=== PATIENT | female | born 2000 | race American Indian/Alaskan Native ===

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

== ENCOUNTER 2021-07-11 15:27 | Outpatient (CLI) | payer MEDICAID, OTHER ==
[2021-07-11 16:23] VITALS: BP 105/59
[2021-07-11] MEDS ORDERED: LACTATED RINGERS 1,000 ML IV ONE (17:00)
[2021-07-11 17:05] LABS: Bilirubin,Urine NEG (Negative); Blood,Urine NEG (Negative); Color,Urine Yellow (Yellow); Mucus,Urine 2+ /HPF; Protein,Urine <15 mg/dL mg/dL (Negative); Urobilinogen,Urine < 2.0 mg/dL (<2.0)
--- NOTE | 2021-07-11 17:29 | Ultrasound Report ---
ULTRASOUND OBSTETRIC LIMITED INDICATION / CLINICAL INFORMATION: labor . Clinical Gestational Age (GA) in weeks, days: 26 weeks 0 days TECHNIQUE: Transabdominal. COMPARISON: None available. FINDINGS: Single live intrauterine in cephalic presentation with measurements corresponding to a gestational age of 26 weeks and 1 day, as below. MEASUREMENTS: - Biparietal Diameter = 6.6 cm = 26 weeks 3 days - Head Circumference = 24 cm = 26 weeks 0 days - Abdominal Circumference = 21.4 cm = 26 weeks 0 days - Femur Length = 4.9 cm = 26 weeks 2 days - Estimated Weight (in grams, if calculated): 891 HEART RATE (beats per minute): 149 AMNIOTIC FLUID INDEX (cm) = 16.4 (normal = 7-24 cm) ADDITIONAL FINDINGS: Posterior placenta is free of the os. No evidence of placental abruption. IMPRESSION: 1. Single live intrauterine with ultrasound age of 26 weeks and 1 day, as described above. 2. No significant abnormality. Signer Name: Henrry Ambriz MD Signed: 07/11/2021 5:25 PM Workstation Name: [id number]
== END 2021-07-11 17:30 | disposition left against medical advice (07) ==
LOC: TRG 15:27 → APU 15:29 → TRG 17:30
PROVIDERS: ATTEND Obstetrics & Gynecology
DX: Z34.92 Encounter for supervision of normal pregnancy, unspecified, second trimester (principal); Z3A.26 26 weeks gestation of pregnancy
CPT/HCPCS: 76816; 81001

== ENCOUNTER → 2021-07-11 | Emergency (ER) | payer MEDICAID, OTHER | LOC: ED 14:29 | DX: R10.9 Unspecified abdominal pain (principal); Z53.21 Procedure and treatment not carried out due to patient leaving prior to being seen by health care provider ==

== ENCOUNTER 2021-09-28 16:47 | Outpatient (CLI) | payer OTHER ==
[2021-09-28 20:15] LABS: Bilirubin,Urine NEG (Negative); Blood,Urine LG (Negative); Color,Urine Yellow (Yellow); Mucus,Urine FEW /HPF; Protein,Urine <15 mg/dL mg/dL (Negative); Urobilinogen,Urine < 2.0 mg/dL (<2.0)
[2021-09-28] MEDS ORDERED: LIDOCAINE-MPF (1%) 10 MG/1 ML VIAL 5 ML INFILTRATI ONE (21:13)
[2021-09-28 22:13] VITALS: BP 121/58
== END 2021-09-28 22:34 | disposition home or self-care (01) ==
LOC: APU 16:47 → TRG 16:47
PROVIDERS: ATTEND Obstetrics & Gynecology
DX: Z34.93 Encounter for supervision of normal pregnancy, unspecified, third trimester (principal); Z3A.37 37 weeks gestation of pregnancy
CPT/HCPCS: 81001; 87086; J0696; J3490

== ENCOUNTER 2021-10-13 12:51 | Outpatient (CLI) | payer OTHER ==
[2021-10-13 13:32] VITALS: BP 114/57
== END 2021-10-13 14:59 | disposition home or self-care (01) ==
LOC: APU 12:51 → TRG 12:51
PROVIDERS: ATTEND Obstetrics & Gynecology
DX: Z34.93 Encounter for supervision of normal pregnancy, unspecified, third trimester (principal); Z3A.39 39 weeks gestation of pregnancy
CPT/HCPCS: 59025

== ENCOUNTER 2021-10-14 05:12 | Inpatient (IN) | payer OTHER ==
[2021-10-14] MEDS ORDERED: LACTATED RINGERS 1,000 ML ONE (06:54)
[2021-10-14] MEDS ORDERED: CARBOPROST TROMETHAMINE 250 MCG/1 ML INJ IM PRN (08:00)
[2021-10-14] MEDS ORDERED: OXYTOCIN DRIP 30 UNITS/500 ML BAG IV SCH ×2 (08:00→09:00)
[2021-10-14] MEDS ORDERED: ePHEDrine SULFATE 50 MG/1 ML INJ IV PRN (08:00)
[2021-10-14] MEDS ORDERED: METHYLERGONOVINE MALEATE 0.2 MG/ML VIAL IM PRN (08:00)
[2021-10-14] MEDS ORDERED: fentaNYL 100 MCG/2 ML INJ IV PRN (08:00)
[2021-10-14] MEDS ORDERED: MINERAL OIL 30 ML ORAL LIQD PO PRN (08:00)
[2021-10-14] MEDS ORDERED: ACETAMINOPHEN 325 MG TAB PO PRN ×2 (08:00→09:00)
[2021-10-14] MEDS ORDERED: LOPERAMIDE 2 MG CAP PO PRN (08:00)
[2021-10-14] MEDS ORDERED: AMPICILLIN/NS 2 GM/100 ML 2 GM/100 ML BAG IV SCH (08:00)
[2021-10-14] MEDS ORDERED: LIDOCAINE (2%) 20 MG/1 ML VIAL 20 ML MDV INFILTRATI SCH (08:00)
[2021-10-14] MEDS ORDERED: LACTATED RINGERS 1,000 ML IV SCH (08:00)
[2021-10-14 08:09] LABS: Basophils % (Auto) 0.4 % (0.0-1.8); Eosinophils # (Auto) 0.1 K/mm3 (0.0-0.4); Eosinophils % (Auto) 1.6 % (0.0-4.3); Hematocrit 30.6 % (30.3-42.9); Hemoglobin 9.6 gm/dl (10.1-14.3); Mean Corpuscular HGB Conc 31 % (30-34); Mean Corpuscular Volume 73 fl (79-97); Monocytes # (Auto) 0.8 K/mm3 (0.0-0.8); Monocytes % (Auto) 9.9 % (0.0-7.3); Platelet Count 184 K/mm3 (140-440); Red Cell Distribution Width 16.4 % (13.2-15.2)
--- NOTE | 2021-10-14 08:16 | Procedure Note ---
<RACHEL KAISER - Last Filed: 10/14/21 08:10> OB Delivery Note - Delivery Date of Delivery: 10/14/21 [place] Worker: RACHEL KAISER - Vaginal Delivery presentation: vertex Delivery position: OA Intrapartum events: precipitous labor- <3hr Delivery induction: none Delivery monitor: external FHT, external uterine Route of delivery: Delivery placenta: spontaneous Delivery cord: 3 umbilical vessels Episiotomy: none Anesthesia: none Delivery comments: called to bedside by L&D staff to assist with delivery. Head upon entry into room. Patient pushed with screaming and legs closed, Delivered FABRIZIO without shoulder dystocia or complication. light mec fluid noted, baby vigorous and crying. placed skin to skin on mother's abdomen. 3 vessel cord clamped and cut after cessation of pulsation.cord blood collected. Placenta delivered intact and complete. Patient appears to have 1st degree perineum laceration but she did not tolerate inspection well closing legs and pulling provider's hands away. Pt is hemostatic, will allow patient's primary provider to assess and repair. Apgars 8/9. Pt left in stable condition with L& D team. - A at 1 minute: 8 at 5 minutes: 9 Infant Gender: Male <ALDO AU - Last Filed: 10/14/21 08:26> OB Delivery Note - A Infant Gender: Male (Weight 8 pounds 5 ounces)
--- NOTE | 2021-10-14 08:25 | History and Physical Report ---
History of Present Illness Date of examination: 10/14/21 Date of admission: 10/14/21 05:13 Chief complaint: Contractions History of present illness: 20-year-old -0-0-1 at 39+5 weeks who presents in active labor with a complaint of leakage of fluid. The patient advanced cervical dilatation at presentation of 5 cm. The patient's course is complicated by late entry to care at 32 weeks estimated gestational age. The patient has a history of genital herpes but denies any recent prodrome. The patient is GBS negative Past History Past Medical History: no pertinent history Past Surgical History: no surgical history PRODUCTION COORDINATOR History: herpes Social history: single - Obstetrical History Expected Date of Delivery: 10/16/21 Actual Gestation: 39 Week(s) 6 Day(s) : 2 Para: 1 Hx # Term Pregnancies: 1 Number of Pregnancies: 0 Spontaneous Abortions: 0 Induced : 0 Number of Living Children: 1 Medications and Allergies Allergies Allergy/AdvReac Type Severity Reaction Status Date / Time pollen extracts Allergy Mild Itching Verified 09/28/21 17:10 Home Medications Medication Instructions Recorded Confirmed Last Taken Type Acetaminophen [Tylenol] 500 mg PO Q6HR PRN #30 tablet 04/19/20 10/14/21 Unknown Rx cephALEXin [Keflex] 500 mg PO Q8HR #30 cap 04/19/20 10/14/21 Unknown Rx Nitrofurantoin Josephine/M-Cryst 100 mg PO Q12HR #14 capsule 05/06/20 10/14/21 Unknown Rx [Macrobid CAP] Ondansetron [Zofran Odt] 4 mg PO Q8HR PRN #14 tab.rapdis 05/06/20 10/14/21 Unknown Rx Nitrofurantoin Josephine/M-Cryst 100 mg PO Q12HR #14 capsule 09/28/21 10/14/21 Unknown Rx [Macrobid CAP] Active Meds: Active Medications Acetaminophen (Acetaminophen 325 Mg Tab) 650 mg PO Q4H PRN PRN Reason: Pain, Mild (1-3) Carboprost Tromethamine (Carboprost Tromethamine 250 Mcg/1 Ml Inj) 250 mcg IM ONCE PRN PRN Reason: Uterine Bleeding Ephedrine Sulfate (Ephedrine Sulfate 50 Mg/1 Ml Inj) 10 mg IV Q2M PRN PRN Reason: Hypotension Fentanyl (Fentanyl 100 Mcg/2 Ml Inj) 100 mcg IV Q2H PRN PRN Reason: Pain,Severe (7-10) LABOR PAIN Oxytocin/Sodium Chloride (Pitocin/Ns 30 Unit/500ml) 30 units in 500 mls @ 2 mls/hr IV TITR JULIO CESAR; Protocol Lactated Ringer's (Lactated Ringers) 1,000 mls @ 125 mls/hr IV DIRECT JULIO CESAR Oxytocin/Sodium Chloride (Pitocin/Ns 30 Unit/500ml) 30 units in 500 mls @ 40 mls/hr IV TITR JULIO CESAR; Protocol Ampicillin Sodium (Ampicillin/Ns 1 Gm/50 Ml) 1 gm in 50 mls @ 100 mls/hr IV Q4H JULIO CESAR; Protocol Ampicillin Sodium (Ampicillin/Ns 2 Gm/100 Ml) 2 gm in 100 mls @ 100 mls/hr IV ONCE@0800 JULIO CESAR; Protocol Stop: 10/14/21 13:00 Lidocaine (Lidocaine (2%) 20 Mg/1 Ml Vial 20 Ml Mdv) 20 ml INFILTRATI ONCE@0800 JULIO CESAR Stop: 10/15/21 07:59 Loperamide HCl (Loperamide 2 Mg Cap) 2 mg PO ONCE PRN PRN Reason: give with Hemabate Methylergonovine Maleate (Methylergonovine Maleate 0.2 Mg/Ml Vial) 0.2 mg IM ONCE PRN PRN Reason: Uterine Bleeding Mineral Oil (Mineral Oil 30 Ml Oral Liqd) 30 ml PO QHS PRN PRN Reason: Constipation Misoprostol (Misoprostol 200 Mcg Tab) 800 mcg OK ONCE PRN PRN Reason: Uterine Bleeding Nalbuphine HCl (Nalbuphine 10 Mg/1 Ml Inj) 10 mg IV Q2H PRN PRN Reason: Pain, Moderate (4-6) Oxytocin (Oxytocin 10 Unit/1 Ml Inj) 10 unit IM ONCE PRN PRN Reason: Uterine Bleeding Terbutaline Sulfate (Terbutaline 1 Mg/1 Ml Inj) 0.25 mg SUB-Q ONCE PRN PRN Reason: Hyperstimulation/Hypertonicity Review of Systems All systems: negative Genitourinary: leakage of fluid, contractions - Vital Signs Vital signs: Vital Signs Pulse Pulse Ox 100 H 100 10/14/21 05:28 10/14/21 05:28 Temp Pulse Resp BP Pulse Ox 104 H 149/88 100 10/14/21 08:13 10/14/21 08:13 10/14/21 07:41 - Physical Exam Breasts: Positive: deferred Cardiovascular: Regular rate Lungs: Positive: Clear to auscultation Abdomen: Positive: normal appearance - Obstetrical Cervical Dilatation: 5 Results Result Diagrams: 10/14/21 18:50 Abnormal lab results 10/14/21 Range/Units 07:30 Hgb 9.6 L (10.1-14.3) gm/dl MCV 73 L (79-97) fl MCH 23 L (28-32) pg RDW 16.4 H (13.2-15.2) % Josephine % (Auto) 9.9 H (0.0-7.3) % All other labs normal. Assessment and Plan - Patient Problems (1) Active labor at term Current Visit: Yes Status: Acute Plan to address problem: Admit to labor and delivery (2) Spontaneous rupture of amniotic membranes Current Visit: Yes Status: Acute
[2021-10-14] MEDS ORDERED: NalbUPHINE 10 MG/1 ML INJ IV PRN (08:30)
[2021-10-14] MEDS ORDERED: miSOPROStol 200 MCG TAB PR PRN (08:30)
[2021-10-14] MEDS ORDERED: TERBUTALINE 1 MG/1 ML INJ SUB-Q PRN (09:00)
[2021-10-14] MEDS ORDERED: LANOLIN/ZINC/DIMETHICONE (LANSINOH) 7 GM TP PRN (09:00)
[2021-10-14] MEDS ORDERED: PROMETHAZINE 25 MG TAB PO PRN (09:00)
[2021-10-14] MEDS ORDERED: diphenhydrAMINE 25 MG CAP PO PRN (09:00)
[2021-10-14] MEDS ORDERED: PROMETHAZINE 25 MG RECT SUPP PR PRN (09:00)
[2021-10-14] MEDS ORDERED: IBUPROFEN 800 MG TAB PO SCH (09:00)
[2021-10-14] MEDS ORDERED: HYDROcodone/ACETAMINOPHEN 5-325 MG TAB PO PRN (09:00)
[2021-10-14] MEDS ORDERED: WITCH HAZEL/ GLYCERIN PAD TP PRN (09:00)
[2021-10-14] MEDS ORDERED: ONDANSETRON 4 MG/2 ML INJ IV PRN (09:00)
[2021-10-14] MEDS ORDERED: OXYTOCIN 10 UNIT/1 ML INJ IM PRN (09:00)
[2021-10-14] MEDS ORDERED: AMPICILLIN/NS 1 GM/50 ML 1 GM/50 ML BAG IV SCH (12:00)
[2021-10-14 19:13] LABS: Hematocrit 26.8 % (30.3-42.9); Hemoglobin 8.3 gm/dl (10.1-14.3)
[2021-10-14] MEDS ORDERED: MAGNESIUM HYDROXIDE (MOM) ORAL LIQD UDC PO PRN (22:00)
[2021-10-15] MEDS: IBUPROFEN ORAL LIQD 100 MG/5 ML ORAL.LIQD PO SCH ×2 (00:14→06:00)
--- NOTE | 2021-10-15 08:09 | Discharge Summary ---
Providers - Providers Date of Admission: 10/14/21 05:13 Date of discharge: 10/15/21 (1600) Attending physician: ALDO AU Primary care physician: ALDO AU Hospitalization Reason for admission: active labor Delivery: Episiotomy: none Laceration: none Other procedures: none complications: none Discharge diagnosis: IUP at term delivered [place] baby: male Hospital course: 10-year-old -0-0-1 at 39+5 weeks who presents in active labor with a complaint of leakage of fluid. The patient advanced cervical dilatation at presentation of 5 cm. The patient's course is complicated by late entry to care at 32 weeks estimated gestational age. The patient has a history of genital herpes but denies any recent prodrome. The patient is GBS negative. course has been uncomplicated. Met discharge criteria on PPD#1, desires to go home if baby is cleared for discharge today. Condition at discharge: Good Disposition: 01 HOME / SELF CARE / HOMELESS - Discharge Diagnoses (1) Normal spontaneous vaginal delivery Status: Acute (2) Anemia Status: Acute Qualifiers: Anemia type: iron deficiency Comment: Asymptomatic Increase iron rich foods into diet Continue daily oral iron supplementation as prescribed Plan - Discharge Medications Prescriptions: Ibuprofen Oral Liqd [Motrin Oral Liq 100 mg/5 ml] 800 mg PO TID #30 oral.liqd - Provider Discharge Summary Activity: routine, no sex for 6 weeks, no heavy lifting 4 weeks, no strenuous exercise Diet: other (Iron rich diet) Instructions: routine Additional instructions: [] Smoking cessation referral if applicable(refer to patient education folder for contact #) [] Refer to [facility] Booklet Call your doctor immediately for: * Fever > 100.5 * Heavy vaginal bleeding ( >1 pad per hour) * Severe persistent headache * Shortness of breath * Reddened, hot, painful area to leg or breast - Follow up plan Follow up: ALDO AU MD [Primary Care Provider] - 6 Weeks Forms: [facility] Discharge Summary
[2021-10-15 12:30] VITALS: BP 115/72
== END 2021-10-15 13:20 | disposition home or self-care (01) | DRG 774 ==
LOC: TRG 05:12 → LD 05:13 → APU 05:22 → LD 07:03 → TRG 07:33 → OB 10:40
PROVIDERS: ADMIT Obstetrics & Gynecology; ATTEND Obstetrics & Gynecology
PROC: 10E0XZZ Delivery of Products of Conception, External Approach (ICD-10-PCS; principal; 2021-10-14)
DX: O62.3 Precipitate labor (principal); O98.32 Other infections with a predominantly sexual mode of transmission complicating childbirth; Z37.0 Single live birth; A60.00 Herpesviral infection of urogenital system, unspecified; Z3A.39 39 weeks gestation of pregnancy; O90.81 Anemia of the puerperium; Z20.822 Contact with and (suspected) exposure to COVID-19; Z91.048 Other nonmedicinal substance allergy status
CPT/HCPCS: 36415; 59025; 85014; 85018; 85025; 86592; 86850; 86900; 86901; 96360; 96367; G0378; J2590; U0003